=== PATIENT | female | born 1960 | race Caucasian/White ===

== ENCOUNTER 2017-01-14 19:46 | Emergency (ER) | payer OTHER ==
[2017-01-14 19:52] VITALS: PULSE 85; TEMP 97.7; BMI 34.7
[2017-01-14] MEDS ORDERED: ONDANSETRON 4 MG/2 ML VIAL IVPB ONE (21:35)
[2017-01-14] MEDS ORDERED: morphine CARPU-JECT 4 MG/1 ML DISP.SYRIN IVPUSH ONE (21:35)
[2017-01-14] MEDS ORDERED: SODIUM CHLORIDE 1,000 ML IV STA (21:35)
--- NOTE | 2017-01-14 21:44 | PDOC ---
"History of Present Illness - General Chief Complaint: Back Pain Stated Complaint: BACK PAIN/BLOOD PRESSURE PROBLEM Time Seen by Provider: 01/14/17 21:22 History Source: Patient, Family, Managing Consultant Used (Google Translate.) Exam Limitations: Language Barrier - History of Present Illness Initial Comments: 01/14/17 21:38 56yo Female patient w/ PmHx: HTN, HLD, NIDDM, Appendectomy, Chronic Back Pain presents to ED c/o right flank pain x 1 week radiating to groin. Associated Nausea and Dizziness. Patient states she has been taking Ibuprofen for pain with no relief. She states attending therapy for back pain and was given an injection a few days ago which lasted 1 day with pain worsening. Patient also c/ o frequent and increase urination. Occurred: reports: other (1 week.) Severity: reports: severe Pain Location: reports: back Method of Injury: No: unknown, assault, direct blow, fall, motor vehicle crash, other Modifying Factors: improves with: pain medication Loss of Consciousness: no loss of consciousness Associated Symptoms (Fall): dizziness, nausea/vomiting Past History - Travel Traveled outside of the country in the last 30 days: No Close contact w/someone who was outside of country & ill: No - Past Medical History Allergies/Adverse Reactions: Allergies Allergy/AdvReac Type Severity Reaction Status Date / Time No Known Drug Allergies Allergy Verified 01/14/17 19:51 Home Medications: Ambulatory Orders Aspirin Coated [Ecotrin -] 81 mg PO DAILY 08/14/13 Metoprolol Tartrate [Lopressor -] 100 mg PO DAILY 08/14/13 Oxycodone HCl [Roxicodone -] 5 mg PO Q4H PRN #20 tablet 08/10/15 Sennosides [Senna -] 2 tab PO HS PRN #60 tablet 08/10/15 Azithromycin [Zithromax Tri-Rehan (3 DAYS) -] 500 mg PO DAILY #3 tablet 10/30/15 Tramadol HCl 50 mg PO Q6H PRN #20 tablet MDD 4 tabs 01/15/17 Anemia: No Asthma: No Cancer: No Cardiac Disorders: No CVA: No COPD: No CHF: No Dementia: No Diabetes: Yes GI Disorders: No Disorders: Yes (INCONTINENCE) HTN: Yes Hypercholesterolemia: No Liver Disease: No Psychiatric Problems: Yes (Depression) Seizures: No Thyroid Disease: No - Surgical History Appendectomy: Yes - Immunization History Immunization Up to Date: Yes - Psycho/Social/Smoking Cessation Hx Anxiety: No Suicidal Ideation: No Smoking History: Never smoked Have you smoked in the past 12 months: No Hx Alcohol Use: No Drug/Substance Use Hx: No Substance Use Type: None Hx Substance Use Treatment: No Trauma Specific PMHX - Complaint Specific PMHX Arthritis: No Back Injury: No Neck Injury: No Hx Sacro Iliac Joint Dysfunction: No Review of Systems - Review of Systems Able to Perform ROS?: Yes Is the patient limited Nigerien proficient: No Constitutional: No: Chills, Fever Respiratory: No: Shortness of Breath Cardiac (ROS): No: Chest Pain, Lightheadedness, Palpitations, Syncope, Chest Tightness ABD/GI: Yes: Nausea. No: Abdominal Distended, Constipated, Diarrhea, Poor Appetite, Poor Fluid Intake, Vomiting, Abdominal cramping : Yes: Frequency, Flank Pain. No: Dysuria, Hematuria, Pain, Urgency Musculoskeletal: Yes: Back Pain All Other Systems: Reviewed and Negative *Physical Exam - Vital Signs Last Vital Signs Temp Pulse Resp BP Pulse Ox 97.7 F 85 18 150/78 98 01/14/17 19:49 01/14/17 19:49 01/14/17 19:49 01/14/17 19:49 01/14/17 19:49 - Physical Exam General Appearance: Yes: Nourished, Appropriately Dressed, Moderate Distress. No: Apparent Distress, Mild Distress, Severe Distress Respiratory/Chest: positive: Lungs Clear, Normal Breath Sounds. negative: Chest Tender, Respiratory Distress, Accessory Muscle Use, Labored Respiration, Rapid RR, Rhonchi, Stridor, Wheezing, Hyperresonant, Dullness, Plerual Rub Cardiovascular: positive: Regular Rhythm, Regular Rate Gastrointestinal/Abdominal: positive: Normal Bowel Sounds, Soft. negative: Distended, Guarding, Rebound, Tenderness Musculoskeletal: positive: Normal Inspection. negative: CVA Tenderness, Vertebral Tenderness Extremity: positive: Normal Capillary Refill, Normal Inspection, Normal Range of Motion. negative: Pedal Edema, Swelling, Calf Tenderness, Erythema, Inflammation Integumentary: positive: Normal Color, Dry, Warm Neurologic: positive: fsr II-XII NML intact, Fully Oriented, Alert, Normal Mood/ Affect, Normal Response, Motor Strength 5/5 ED Treatment Course - LABORATORY CBC & Chemistry Diagram: 01/14/17 22:10 01/14/17 22:10 Medical Decision Making - Medical Decision Making 01/15/17 04:53 The Drug Utilization Report below displays all of the controlled substance prescriptions, if any, that your patient has filled in the last twelve months. The information displayed on this report is compiled from pharmacy submissions to the Department, and accurately reflects the information as submitted by the pharmacies. This report was requested by: James Garcia | Reference #: [id number] There are no results for the search terms that you entered. *DC/Admit/Observation/Transfer Diagnosis at time of Disposition: Exacerbation of chronic back pain - Discharge Dispostion Disposition: HOME Condition at time of disposition: Improved Admit: No - Prescriptions Prescriptions: Tramadol HCl 50 mg PO Q6H PRN #20 tablet MDD 4 tabs PRN Reason: Severe Pain - Referrals Referrals: Chapin Velazquez MD [Staff Physician] - - Patient Instructions Printed Discharge Instructions: DI for Low Back Pain Additional Instructions: FOLLOW UP WITH DR. VELAZQUEZ (ORTHOPEDIC) OR YOUR ORTHOPEDIST REGARDING BACK PAIN NOT RELIEVED BY NORMAL MEANS. TAKE MEDICATIONS PRESCRIBED. DO NOT DRIVE, DRINK ALCOHOL, OR OPERATE HEAVY MACHINERY WHILE TAKING TRAMADOL. WARM COMPRESS NEEDED. RETURN IF ANY CONCERNS. YOUR DOCTOR NEEDS TO ORDER MRI IF AN MRI IS NEEDED. WE HAVE PROVIDED YOU WITH RESULTS OF YOUR CT-SCAN TONIGHT. Print Language: VENEZUELAN"
[2017-01-14] MEDS ORDERED: morphine CARPU-JECT 4 MG/1 ML DISP.SYRIN ONE (21:54)
[2017-01-14] MEDS ORDERED: ONDANSETRON 4 MG/2 ML VIAL ONE (21:55)
[2017-01-14 22:25] LABS: BASOPHIL 0.5 % (0-2.0); EOSINOPHIL 0.1 % (0-4.5); MCH 29.2 pg (25.7-33.7); MCHC 32.8 g/dl (32.0-36.0); MEAN PLT VOLUME 9.7 fl (7.5-11.1); NEUTROPHILS 79.3 % (42.8-82.8); PLATELET COUNT 254 K/MM3 (134-434); RDW 14.1 % (11.6-15.6); WHITE BLOOD COUNT 14.9 K/mm3 (4.0-10.0)
[2017-01-14 22:47] LABS: ALBUMIN 3.4 g/dl (3.4-5.0); ANION GAP 8 (8-16); BILIRUBIN,TOTAL 0.2 mg/dL (0.2-1.0); CALCIUM 9.5 mg/dL (8.5-10.1); CO2 30 mmol/L (21-32); CREATININE 0.7 mg/dL (0.55-1.02); GLUCOSE,RANDOM 210 mg/dL (74-106); SGOT/AST 15 U/L (15-37); SGPT/ALT 29 U/L (12-78); TOT PROT 6.5 g/dl (6.4-8.2)
[2017-01-14 22:49] LABS: ALK PHOS 91 U/L (45-117); TROPONIN I < 0.02 ng/ml (0.00-0.05)
[2017-01-15 00:42] LABS: URINE APPEARANCE CLEAR; URINE BILIRUBIN NEGATIVE (NEGATIVE); URINE BLOOD NEGATIVE (NEGATIVE); URINE COLOR STRAW; URINE GLUCOSE (UA) 3+ (NEGATIVE); URINE KETONE NEGATIVE (NEGATIVE); URINE LEUK ESTERASE NEGATIVE (NEGATIVE); URINE NITRITE NEGATIVE (NEGATIVE); URINE PROTEIN NEGATIVE (NEGATIVE); URINE UROBILINOGEN NEGATIVE E.U./dl (0.2-1.0)
[2017-01-15 05:29] VITALS: BP 127/85
== END 2017-01-15 06:05 | disposition home or self-care (01) ==
LOC: JER 19:46
PROC: 3E033NZ Introduction of Analgesics, Hypnotics, Sedatives into Peripheral Vein, Percutaneous Approach (ICD-10-PCS; principal; 2017-01-14)
PROC: 3E033GC Introduction of Other Therapeutic Substance into Peripheral Vein, Percutaneous Approach (ICD-10-PCS; 2017-01-14)
DX: M54.5 Low back pain (principal); G89.29 Other chronic pain; I10 Essential (primary) hypertension; E11.9 Type 2 diabetes mellitus without complications; E78.00 Pure hypercholesterolemia, unspecified; F32.9 Major depressive disorder, single episode, unspecified
CPT/HCPCS: 36415; 72131-TC; 74176-TC; 80053; 81003; 82550; 84484; 85025; 87086; 96374; 96375; 99283-25

== ENCOUNTER 2017-05-21 11:12 | Day surgery (SDC) | payer OTHER ==
[2017-05-20 17:29] VITALS: BMI 32.9
[2017-05-21 11:31] VITALS: TEMP 97.9
[2017-05-21] MEDS ORDERED: LIDOCAINE HCL/PF 2% SDV 5ML VIAL ONE (13:23)
[2017-05-21] MEDS ORDERED: LIDOCAINE HCL 1%, 10 MG/ML (20ML VIAL) INF ONE (13:26)
[2017-05-21] MEDS ORDERED: BUPIVACAINE HCL/PF 0.25% (2.5MG/ML) 10 ML VIAL IJ ONE (13:27)
[2017-05-21] MEDS ORDERED: BETAMET ACET/BETAMET NA PH 30 MG/5 ML VIAL IM ONE (13:28)
[2017-05-21] MEDS ORDERED: IOHEXOL 180 MG/1 ML ML IJ ONE (13:28)
[2017-05-21] MEDS ORDERED: LIDOCAINE HCL 1%, 10 MG/ML (20ML VIAL) ONE (13:57)
[2017-05-21] MEDS ORDERED: BUPIVACAINE HCL/PF 0.25% (2.5MG/ML) 10 ML VIAL ONE (13:57)
[2017-05-21] MEDS ORDERED: methylPREDNISolone ACET (DEPO) 40 MG/1 ML VIAL ONE (13:58)
[2017-05-21] MEDS ORDERED: BETAMET ACET/BETAMET NA PH 30 MG/5 ML VIAL ONE (13:58)
--- NOTE | 2017-05-21 14:37 | PROC ---
Procedure Note Procedure: Date of service: 05/21/2017 Preoperative Diagnosis: Low back pain and lumbar radiculopathy on right Postoperative Diagnosis: Same Procedure Performed: Lumbar Epidural Steroid Injection (LESI) on Right L4-5 with dye under Fluoroscopy Anesthesia: Local / MAC Anesthesiologist: Dr. Roche Procedure: I discussed with the patient in detail about the risks, benefits, and alternatives to treatment not only limited to infection, headache, numbness , weakness, and injury to nerves, blood vessels and muscles. The patient understood, agreed and signed the written consent. The patient was placed in the prone position with the head, abdomen and legs supported with the pillows. The lumbosacral area was prepped and draped with Betadine times three in a sterile fashion. Lumbar vertebrae were identified under the C-arm. At L4-5 level on the right side, 3 ml of 1 % Lidocaine was infiltrated into the skin and subcutaneous tissue. A 3 inch, #20 gauge Tuohy needle was advanced to the epidural space with loss of resistance technique under fluoroscopic guidance. Aspiration was negative for cerebrospinal fluid and blood. 2ml of Omnipaque ( radio-opaque dye) was injected to confirm the tip of the needle into epidural space and spread of dye. There was no CSF or vascular spread. The spread of dye was noted cranially and caudally on epidurogram. Aspiration was done again which was negative. A solution of 2.0 ml of Celestone 2 ml of 0.25% Marcaine and a total of 4 ml was injected slowly. While Tuohy needle was withdrawn 2.0 ml of 1 % Lidocaine was infiltrated. Bleeding was checked. Betadine was wiped off. A sterile bandage was placed. The patient tolerated the procedure well. There were no immediate complications. The patient was transferred to the recovery room. The patient was observed for some time and discharged as per ASU criteria. The patient was told to apply ice at the injection site. Follow up appointment was given and also call my office at [phone]. If there is any problem, call my office or report to Emergency Room. Tyrone Davis M.D.
[2017-05-21 15:52] VITALS: BP 150/82; PULSE 82
== END 2017-05-21 15:52 | disposition home or self-care (01) ==
LOC: JASU-SURG 11:12
PROVIDERS: ATTEND Physical Medicine & Rehabilitation
PROC: 3E0R33Z Introduction of Anti-inflammatory into Spinal Canal, Percutaneous Approach (ICD-10-PCS; 2017-05-21)
PROC: B01BYZZ Fluoroscopy of Spinal Cord using Other Contrast (ICD-10-PCS; 2017-05-21)
PROC: 3E0R3BZ Introduction of Anesthetic Agent into Spinal Canal, Percutaneous Approach (ICD-10-PCS; principal; 2017-05-21 13:00)
DX: M54.16 Radiculopathy, lumbar region (principal); M54.5 Low back pain
CPT/HCPCS: 76000-TC

== ENCOUNTER 2017-12-01 12:49 | Emergency (ER) | payer OTHER ==
[2017-12-01 13:03] VITALS: BP 127/78; PULSE 95; TEMP 98.3; BMI 34.7
[2017-12-01] MEDS ORDERED: LORATADINE 10 MG TABLET PO ONE (13:29)
[2017-12-01] MEDS ORDERED: LORATADINE 10 MG TABLET ONE (13:31)
--- NOTE | 2017-12-01 13:34 | PDOC ---
History of Present Illness - General Chief Complaint: Allergic Reaction Stated Complaint: ALLERGIC REACTION Time Seen by Provider: 12/01/17 13:09 History Source: Patient - History of Present Illness Timing/Duration: reports: other Location: reports: extremities, torso Past History - Past Medical History Allergies/Adverse Reactions: Allergies Allergy/AdvReac Type Severity Reaction Status Date / Time No Known Drug Allergies Allergy Verified 12/01/17 13:03 Home Medications: Ambulatory Orders Aspirin Coated [Ecotrin -] 81 mg PO DAILY 08/14/13 Chlorthalidone 25 mg PO ASDIR 12/01/17 Diphenhydramine HCl [Benadryl -] 25 mg PO Q6H #28 capsule 12/01/17 Escitalopram Oxalate [Lexapro -] 10 mg PO DAILY 12/01/17 Gabapentin 300 mg PO ASDIR 12/01/17 Lisinopril [Zestril] 2.5 mg PO ASDIR 12/01/17 Loratadine [Claritin] 10 mg PO DAILY #14 tablet 12/01/17 Loratadine [Claritin] 10 mg PO DAILY #14 tablet 12/01/17 Metformin HCl 850 mg PO ASDIR 12/01/17 Anemia: No Asthma: No Cancer: No Cardiac Disorders: No CVA: No COPD: No CHF: No Dementia: No Diabetes: Yes GI Disorders: No Disorders: Yes (INCONTINENCE) HTN: Yes Hypercholesterolemia: No Liver Disease: No Psychiatric Problems: Yes (Depression) Seizures: No Thyroid Disease: No - Surgical History Appendectomy: Yes - Immunization History Immunization Up to Date: Yes - Suicide/Smoking/Psychosocial Hx Smoking History: Never smoked Have you smoked in the past 12 months: No Hx Alcohol Use: No Drug/Substance Use Hx: No Substance Use Type: None Hx Substance Use Treatment: No Review of Systems - Review of Systems Constitutional: No: Chills, Fever Respiratory: No: Shortness of Breath, Wheezing Integumentary: Yes: Pruritus, Rash *Physical Exam - Vital Signs Last Vital Signs Temp Pulse Resp BP Pulse Ox 98.3 F 95 H 18 127/78 99 12/01/17 13:00 12/01/17 13:00 12/01/17 13:00 12/01/17 13:00 12/01/17 13:00 - Physical Exam General Appearance: Yes: Appropriately Dressed. No: Apparent Distress HEENT: positive: Normal Voice. negative: Muffled/Hoarse voice Neck: positive: Supple. negative: Stridor Respiratory/Chest: negative: Respiratory Distress Integumentary: positive: Dry, Warm, Hives Neurologic: positive: Fully Oriented, Alert, Normal Mood/Affect Medical Decision Making - Medical Decision Making 12/01/17 13:32 57-year-old female, history of diabetes and hypertension, here with pruritic rash 3 days. Patient has no known drug or food allergies and denies any inciting factors at this time. No sick contacts or recent travel. No respiratory symptoms. Has not taking anything for rash. Patient well- appearing and stable with rash consistent with hives to upper and lower extremities and trunk. Exam otherwise unremarkable. Dose of Claritin given in ED. DC with same and PMD follow-up as needed *DC/Admit/Observation/Transfer Diagnosis at time of Disposition: Hives - Discharge Dispostion Disposition: HOME Condition at time of disposition: Good - Prescriptions Prescriptions: Diphenhydramine HCl [Benadryl -] 25 mg PO Q6H #28 capsule Loratadine [Claritin] 10 mg PO DAILY #14 tablet Loratadine [Claritin] 10 mg PO DAILY #14 tablet - Referrals - Patient Instructions Printed Discharge Instructions: Hives Additional Instructions: It appears that you have an allergic reaction at this time. Take Claritin once daily as directed and you can take Benadryl at night to assist with sleep as needed. If symptoms worsen, return to ER immediately. Otherwise follow-up with your PMD - Post Discharge Activity
== END 2017-12-01 13:35 | disposition home or self-care (01) ==
LOC: JERFT 12:49
DX: T78.40XA Allergy, unspecified, initial encounter (principal); L50.0 Allergic urticaria; I10 Essential (primary) hypertension; E11.9 Type 2 diabetes mellitus without complications; Z79.84 Long term (current) use of oral hypoglycemic drugs; F32.9 Major depressive disorder, single episode, unspecified
CPT/HCPCS: 99281-25

== ENCOUNTER 2018-02-09 22:10 | Emergency (ER) | payer OTHER ==
[2018-02-09 22:23] VITALS: BMI 32.9
[2018-02-09] MEDS ORDERED: morphine CARPU-JECT 4 MG/1 ML DISP.SYRIN IVPUSH STA (23:55)
[2018-02-09] MEDS ORDERED: SODIUM CHLORIDE 1,000 ML IV STA (23:55)
[2018-02-09] MEDS ORDERED: ONDANSETRON 4 MG/2 ML VIAL IVPUSH STA (23:55)
--- NOTE | 2018-02-09 23:55 | PDOC ---
History of Present Illness <TyroneJackiejza Carcamo - Last Filed: 02/09/18 23:55> - General History Source: Patient Exam Limitations: No Limitations - History of Present Illness Initial Comments: 02/10/18 00:33 The patient is a 57 year old female, with a significant PMH of HDL non insulin independent diabetes, HTN and depression who presents to the emergency department with nausea and vomiting that began 1 day ago. The patient states nausea and vomiting is accompanied with RUQ/RLQ pain, chills, dysuria and 3 loose stools. The patient mentions she went to her clinic yesterday and was prescribed pyridium. The patient denies chest pain, shortness of breath, headache and dizziness.Denies, constipation, frequency, urgency and hematuria. Allergies: NKDA Past surgical history: Appendectomy Social history: None reported PCP: None reported <Aron Olmstead - Last Filed: 02/10/18 00:33> <Ngozi Sanches - Last Filed: 02/10/18 06:09> - General Chief Complaint: Pain Stated Complaint: VOMIT/STOMACH PAIN Time Seen by Provider: 02/09/18 23:37 Past History - Past Medical History Anemia: No Asthma: No Cancer: No Cardiac Disorders: No CVA: No COPD: No CHF: No DVT: No Dementia: No Diabetes: Yes (NIDDM) GI Disorders: No Disorders: Yes (INCONTINENCE) HTN: Yes Hypercholesterolemia: Yes Liver Disease: No Psychiatric Problems: Yes (Depression) Seizures: No Thyroid Disease: No - Surgical History Appendectomy: Yes - Immunization History Immunization Up to Date: Yes - Suicide/Smoking/Psychosocial Hx Smoking History: Never smoked Have you smoked in the past 12 months: No Information on smoking cessation initiated: No Hx Alcohol Use: No Drug/Substance Use Hx: No Substance Use Type: None Hx Substance Use Treatment: No <Jackie Hansen - Last Filed: 02/09/18 23:55> <Aron Olmstead - Last Filed: 02/10/18 00:33> <Ngozi Sanches - Last Filed: 02/10/18 06:09> - Past Medical History Allergies/Adverse Reactions: Allergies Allergy/AdvReac Type Severity Reaction Status Date / Time No Known Drug Allergies Allergy Verified 12/01/17 13:03 Home Medications: Ambulatory Orders Aspirin Coated [Ecotrin -] 81 mg PO DAILY 08/14/13 Chlorthalidone 25 mg PO ASDIR 12/01/17 Diphenhydramine HCl [Benadryl -] 25 mg PO Q6H #28 capsule 12/01/17 Escitalopram Oxalate [Lexapro -] 10 mg PO DAILY 12/01/17 Gabapentin 300 mg PO ASDIR 12/01/17 Lisinopril [Zestril] 2.5 mg PO ASDIR 12/01/17 Loratadine [Claritin] 10 mg PO DAILY #14 tablet 12/01/17 Loratadine [Claritin] 10 mg PO DAILY #14 tablet 12/01/17 Metformin HCl 850 mg PO ASDIR 12/01/17 Cephalexin [Keflex] 500 mg PO TID #21 capsule 02/10/18 Review of Systems - Review of Systems Able to Perform ROS?: Yes Comments:: 02/10/18 00:33 CONSTITUTIONAL: Present: Fever, chills Absent: diaphoresis, generalized weakness, malaise, loss of appetite HEENT: Absent: rhinorrhea, nasal congestion, throat pain, throat swelling, difficulty swallowing, mouth swelling, ear pain, eye pain, visual Changes CARDIOVASCULAR: Absent: chest pain, syncope, palpitations, irregular heart rate, lightheadedness , peripheral edema RESPIRATORY: Absent: cough, shortness of breath, dyspnea with exertion, orthopnea, wheezing, stridor, hemoptysis GASTROINTESTINAL: Present: Nausea, vomiting Absent: abdominal pain, abdominal distension,diarrhea, constipation, melena, hematochezia GENITOURINARY: Present:dysuria Absent: frequency, urgency, hesitancy, hematuria, flank pain, genital pain SKIN: Absent: rash, itching, pallor ENDOCRINE: Absent: unexplained weight gain, unexplained weight loss, heat intolerance, cold intolerance NEUROLOGIC: Absent: headache, focal weakness or paresthesias, dizziness, unsteady gait, seizure, mental status changes, bladder or bowel incontinence PSYCHIATRIC: Absent: anxiety, depression, suicidal or homicidal ideation, hallucinations. <Aron Olmstead - Last Filed: 02/10/18 00:33> *Physical Exam - Vital Signs Last Vital Signs Temp Pulse Resp BP Pulse Ox 98.1 F 93 H 20 149/86 98 02/09/18 22:17 02/09/18 22:17 02/09/18 22:17 02/09/18 22:17 02/09/18 22:17 <Jackie Hansen - Last Filed: 02/09/18 23:55> - Vital Signs Last Vital Signs Temp Pulse Resp BP Pulse Ox 98.1 F 93 H 20 149/86 98 02/09/18 22:17 02/09/18 22:17 02/09/18 22:17 02/09/18 22:17 02/09/18 22:17 - Physical Exam Comments: 02/10/18 00:34 GENERAL: Well developed, well nourished. Awake and alert. No acute distress. HEENT: Normocephalic, atraumatic. PERRLA, EOMI. No conjunctival pallor. Sclera are non- icteric. Moist mucous membranes. Oropharynx is clear. NECK: Supple. Full ROM. No JVD. Carotid pulses 2+ and symmetric, without bruits. No thyromegaly. No lymphadenopathy. CARDIOVASCULAR: Regular rate and rhythm. No murmurs, rubs, or gallops. Distal pulses are 2+ and symmetric. PULMONARY: No evidence of respiratory distress. Lungs clear to auscultation bilaterally. No wheezing, rales or rhonchi. ABDOMINAL: +RUQ/ RLQ tenderness to palpation. Soft. No rebound or guarding. No organomegaly. Normoactive bowel sounds. MUSCULOSKELETAL Normal range of motion at all joints. No bony deformities or tenderness. No CVA tenderness. EXTREMITIES: No cyanosis. No clubbing. No edema. No calf tenderness. SKIN: Warm and dry. Normal capillary refill. No rashes. No jaundice. NEUROLOGICAL: Alert, awake, appropriate. Cranial nerves 2-12 intact. No deficits to light touch and temperature in face, upper extremities and lower extremities. Normoreflexic in the upper and lower extremities. Normal speech. PSYCHIATRIC: Cooperative. Good eye contact. Appropriate mood and affect. <Aron Olmstead - Last Filed: 02/10/18 00:33> - Vital Signs Last Vital Signs Temp Pulse Resp BP Pulse Ox 98.1 F 93 H 20 149/86 98 02/09/18 22:17 02/09/18 22:17 02/09/18 22:17 02/09/18 22:17 02/09/18 22:17 <Ngozi Sanches - Last Filed: 02/10/18 06:09> ED Treatment Course - LABORATORY CBC & Chemistry Diagram: 02/10/18 01:28 02/10/18 01:28 - ADDITIONAL ORDERS Additional order review: Laboratory Results 02/10/18 02/10/18 01:28 01:28 Sodium 144 Potassium 3.5 Chloride 105 Carbon Dioxide 30 Anion Gap 9 BUN 17 Creatinine 0.7 Creat Clearance w eGFR > 60 Random Glucose 140 H Calcium 9.7 Total Bilirubin 0.4 AST 19 ALT 32 Alkaline Phosphatase 122 H Total Protein 7.0 Albumin 3.8 Lipase 85 Urine Color Kae Urine Appearance Clear Urine pH 6.0 D Ur Specific [place] 1.024 Urine Protein Negative Urine Glucose (UA) Negative Urine Ketones Negative Urine Blood Negative Urine Nitrite Positive Urine Bilirubin Negative Urine Urobilinogen 4.0 e.u/dl H Ur Leukocyte Esterase Negative Urine WBC (Auto) 13 Urine RBC (Auto) 1 Ur Epithelial Cells Few Urine Mucus Few 02/10/18 01:28 RBC 4.75 MCV 87.6 MCHC 34.2 RDW 13.7 MPV 9.6 Neutrophils % 84.5 H Lymphocytes % 10.9 D Monocytes % 4.0 Eosinophils % 0.4 D Basophils % 0.2 - Medications Given in the ED: ED Medications Discontinued Medications Generic Name Dose Route Start Last Admin Trade Name Ally PRN Reason Stop Dose Admin Sodium Chloride 1,000 mls @ 1,000 mls/hr 02/09/18 23:55 02/10/18 01:23 Normal Saline - IV 02/10/18 00:54 1,000 mls/hr ASDIR STA Administration Morphine Sulfate 2 mg 02/09/18 23:55 02/10/18 01:32 Morphine Injection - IVPUSH 02/09/18 23:56 2 mg ONCE STA Administration Ondansetron HCl 4 mg 02/09/18 23:55 02/10/18 01:33 Zofran Injection IVPUSH 02/09/18 23:56 4 mg ONCE STA Administration <Ngozi Sanches - Last Filed: 02/10/18 06:09> Medical Decision Making - Medical Decision Making 02/10/18 05:54 Patient Name: DREW BLANTON THIS IS A PRELIMINARY REPORT FROM [facility] [employer]NA[facility] DATE OF SERVICE: 2018-02-10 02:24:25 IMAGES: [id number] EXAM: ABDOMEN \T\ PELVIS CT WITH CONTR HISTORY: Right lower quadrant pain COMPARISON: None. FINDINGS: Lung bases are clear. The visualized cardiac chambers are normal size and configuration. Normal liver, gallbladder, pancreas, spleen, adrenal glands and kidneys. The stomach and small bowel bowel are normal. There is scattered liquid stool without colonic wall thickening which may indicate a diarrheal illness. There is no aortic aneurysm. There is no significant retroperitoneal lymphadenopathy. Status post appendectomy. The uterus and adnexal structures are normal. Urinary bladder is unremarkable. There is no pelvic free fluid. No discrete pelvic lymphadenopathy is identified. IMPRESSION: Possible diarrheal illness without colonic wall thickening. Individualized dose optimization techniques were used for this CT. 02/10/18 06:08 Pt will be treated with rocephin in the ER for UTI and she will go home with keflex. <Ngozi Sanches - Last Filed: 02/10/18 06:09> *DC/Admit/Observation/Transfer <Jackie Hansen - Last Filed: 02/09/18 23:55> - Attestations Scribe Attestion: 02/10/18 00:35 Documentation prepared by Aron Olmstead, acting as senior medical writer for Jackie Hansen MD. <Aron Olmstead - Last Filed: 02/10/18 00:33> - Discharge Dispostion Decision to Admit order: No <Ngozi Sanches - Last Filed: 02/10/18 06:09> Diagnosis at time of Disposition: Diarrhea, UTI (urinary tract infection) - Discharge Dispostion Disposition: HOME Condition at time of disposition: Stable - Prescriptions Prescriptions: Cephalexin [Keflex] 500 mg PO TID #21 capsule - Referrals Referrals: Carmella Martinez [Primary Care Provider] - - Patient Instructions Printed Discharge Instructions: Urinary Tract Infection, Diarrhea, Probiotics May Decrease Intensity and Duration of Diarrhea Due to Infection - Post Discharge Activity
[2018-02-10 01:40] LABS: BASO % 0.2 % (0-2.0); EOS % 0.4 % (0-4.5); HEMATOCRIT 41.6 % (32.4-45.2); HEMOGLOBIN 14.2 GM/dL (10.7-15.3); LYMPH % 10.9 % (8-40); MCH 29.9 pg (25.7-33.7); MCHC 34.2 g/dl (32.0-36.0); MEAN CELL VOLUME 87.6 fl (80-96); MEAN PLT VOLUME 9.6 fl (7.5-11.1); NEUT % 84.5 % (42.8-82.8); PLATELET COUNT 237 K/MM3 (134-434); RBC 4.75 M/mm3 (3.60-5.2); RDW 13.7 % (11.6-15.6); WHITE BLOOD COUNT 10.8 K/mm3 (4.0-10.0)
[2018-02-10 01:41] LABS: URINE APPEARANCE CLEAR; URINE BILIRUBIN NEGATIVE (<2.0 mg/dL); URINE COLOR AMBER; URINE GLUCOSE (UA) NEGATIVE (NEGATIVE); URINE KETONE NEGATIVE (NEGATIVE); URINE LEUK ESTERASE NEGATIVE (NEGATIVE); URINE NITRITE POSITIVE (NEGATIVE); URINE PROTEIN NEGATIVE (NEGATIVE); URINE UROBILINOGEN 4.0 E.U/dl mg/dL (0.2-1.0)
[2018-02-10] MEDS ORDERED: MORPHINE SULFATE 2 MG/ML VIAL ONE (01:46)
[2018-02-10] MEDS ORDERED: ONDANSETRON 4 MG/2 ML VIAL ONE (01:47)
[2018-02-10 01:50] LABS: EPI CELLS FEW /HPF (FEW); URINE MUCUS FEW
[2018-02-10 02:03] LABS: ALBUMIN 3.8 g/dl (3.4-5.0); ANION GAP 9 (8-16); BILIRUBIN,TOTAL 0.4 mg/dL (0.2-1.0); BLOOD UREA NITROGEN 17 mg/dL (7-18); CALCIUM 9.7 mg/dL (8.5-10.1); CHLORIDE 105 mmol/L (98-107); CO2 30 mmol/L (21-32); CREATININE 0.7 mg/dL (0.55-1.02); GLUCOSE,RANDOM 140 mg/dL (74-106); LIPASE 85 U/L (73-393); POTASSIUM 3.5 mmol/L (3.5-5.1); SGOT/AST 19 U/L (15-37); SGPT/ALT 32 U/L (12-78); SODIUM 144 mmol/L (136-145)
[2018-02-10 02:04] LABS: ALK PHOS 122 U/L (45-117)
[2018-02-10] MEDS ORDERED: CEFTRIAXONE 1,000 MG in DEXTROSE 5%-WATER - 50 ML IVPB ONE (05:58)
[2018-02-10] MEDS ORDERED: CEFTRIAXONE 1 GM/50 ML BAG ONE (06:07)
[2018-02-10 06:44] VITALS: BP 129/72; PULSE 78; TEMP 97.9
== END 2018-02-10 06:44 | disposition home or self-care (01) ==
LOC: JER 22:10
PROC: 3E0337Z Introduction of Electrolytic and Water Balance Substance into Peripheral Vein, Percutaneous Approach (ICD-10-PCS; principal; 2018-02-09)
PROC: 3E02329 Introduction of Other Anti-infective into Muscle, Percutaneous Approach (ICD-10-PCS; 2018-02-09)
PROC: 3E03329 Introduction of Other Anti-infective into Peripheral Vein, Percutaneous Approach (ICD-10-PCS; 2018-02-09)
PROC: 3E033GC Introduction of Other Therapeutic Substance into Peripheral Vein, Percutaneous Approach (ICD-10-PCS; 2018-02-09)
DX: N39.0 Urinary tract infection, site not specified (principal); R19.7 Diarrhea, unspecified
CPT/HCPCS: 36415; 74177-TC; 80053; 81003; 81015; 83690; 85025; 96361; 96365; 96375; 99282-25; J7030

== ENCOUNTER 2018-06-02 09:17 | Emergency (ER) | payer OTHER ==
[2018-06-02 09:26] VITALS: BP 167/89; PULSE 94; TEMP 97.3; BMI 34.0
[2018-06-02] MEDS ORDERED: KETOROLAC TROMETHAMINE 60 MG/2 ML VIAL IM ONE (11:15)
[2018-06-02] MEDS ORDERED: CYCLOBENZAPRINE HCL 10 MG TABLET (FP) PO ONE (11:16)
[2018-06-02] MEDS ORDERED: CYCLOBENZAPRINE HCL 10 MG TABLET (FP) ONE (11:17)
[2018-06-02] MEDS ORDERED: KETOROLAC TROMETHAMINE 60 MG/2 ML VIAL ONE (11:17)
--- NOTE | 2018-06-02 11:53 | PDOC ---
History of Present Illness - General Chief Complaint: Back Pain Stated Complaint: BACK PAIN Time Seen by Provider: 06/02/18 11:07 History Source: Patient Exam Limitations: Clinical Condition - History of Present Illness Initial Comments: 06/02/18 11:51 Patient with history of herniated disc a lumbar spine status post spinal fusion 2 months ago present with complaint of lower back pain radiating to the side of lower left side. Patient has been taking the prescribed Percocet by report has not been helping with the pain. Patient denies any numbness or tingling sensation. Patient report patient keeps her up at night and unable to sleep due to pain which has been going on for 3 days now. Patient reports she fell 2 weeks ago and not sure if that was causing the pain to worsen. Patient denies any other symptoms Timing/Duration: other (3 days) Past History - Past Medical History Allergies/Adverse Reactions: Allergies Allergy/AdvReac Type Severity Reaction Status Date / Time No Known Drug Allergies Allergy Verified 06/02/18 09:26 Home Medications: Ambulatory Orders Aspirin Coated [Ecotrin -] 81 mg PO DAILY 08/14/13 Chlorthalidone 25 mg PO ASDIR 12/01/17 Escitalopram Oxalate [Lexapro -] 10 mg PO DAILY 12/01/17 Gabapentin 300 mg PO ASDIR 12/01/17 Lisinopril [Zestril] 2.5 mg PO ASDIR 12/01/17 metFORMIN HCL [Metformin HCl] 850 mg PO ASDIR 12/01/17 Gabapentin [Neurontin] 300 mg PO Q8H PRN #20 capsule 06/02/18 Methocarbamol [Robaxin -] 500 mg PO TID #21 tablet 06/02/18 Anemia: No Asthma: No Cancer: No Cardiac Disorders: No CVA: No COPD: No CHF: No DVT: No Dementia: No Diabetes: Yes (NIDDM) GI Disorders: No Disorders: Yes (INCONTINENCE) HTN: Yes Hypercholesterolemia: Yes Liver Disease: No Psychiatric Problems: Yes (Depression) Seizures: No Thyroid Disease: No - Surgical History Appendectomy: Yes - Immunization History Immunization Up to Date: Yes - Suicide/Smoking/Psychosocial Hx Smoking History: Never smoked Have you smoked in the past 12 months: No Information on smoking cessation initiated: No Hx Alcohol Use: No Drug/Substance Use Hx: No Substance Use Type: None Hx Substance Use Treatment: No Review of Systems - Review of Systems Able to Perform ROS?: Yes Is the patient limited Telugu proficient: No Constitutional: No: Weakness HEENTM: No: Double Vision Respiratory: No: Symptoms reported Cardiac (ROS): No: Symptoms Reported ABD/GI: No: Symptoms Reported : No: Dysuria, Frequency, Flank Pain, Incontinence, Urgency Musculoskeletal: Yes: See HPI, Back Pain (lwoer back), Muscle Pain (lower back radiating to left side). No: Joint Swelling, Muscle Weakness, Neck Pain Neurological: No: Symptoms reported, Numbness, Paresthesia, Tingling All Other Systems: Reviewed and Negative *Physical Exam - Vital Signs Last Vital Signs Temp Pulse Resp BP Pulse Ox 97.3 F L 94 H 16 167/89 100 06/02/18 09:23 06/02/18 09:23 06/02/18 09:23 06/02/18 09:23 06/02/18 09:23 - Physical Exam Comments: 06/02/18 11:54 GENERAL: Well developed, well nourished. Awake and alert. No acute distress. CARDIOVASCULAR: Regular rate and rhythm. No murmurs, rubs, or gallops. PULMONARY: No evidence of respiratory distress. Lungs clear to auscultation bilaterally. No wheezing, rales or rhonchi. ABDOMINAL: Soft. Non-tender. Non-distended. No rebound or guarding. No organomegaly. Normoactive bowel sounds MUSCULOSKELETAL : moderate tenderness over posterior paravertebral muscle L4-S2 on left side. No bony deformities EXTREMITIES: No cyanosis. No clubbing. No edema. No calf tenderness. SKIN: well healed linear surgical incisional scar on lumbar spine . no erythema to incision site. no evidence of infection to incision site NEUROLOGICAL: Alert, awake, appropriate. No motor deficits in the lower extremities. negative strainght left raise. Gait is normal with cane. PSYCHIATRIC: Cooperative. Good eye contact. Appropriate mood and affect. General Appearance: Yes: Nourished, Appropriately Dressed, Mild Distress ED Treatment Course - RADIOLOGY Radiology Studies Ordered: Category Date Time Status SPINE-LUMBAR SACRAL [RAD] Stat Radiology 06/02/18 11:16 Taken - Medications Given in the ED: ED Medications Discontinued Medications Generic Name Dose Route Start Last Admin Trade Name Freq PRN Reason Stop Dose Admin Cyclobenzaprine HCl 10 mg 06/02/18 11:16 06/02/18 11:24 Flexeril - PO 06/02/18 11:17 10 mg ONCE ONE Administration Ketorolac Tromethamine 60 mg 06/02/18 11:15 06/02/18 11:24 Toradol Injection - IM 06/02/18 11:16 60 mg ONCE ONE Administration Medical Decision Making - Medical Decision Making 06/02/18 11:56 Patient with history of herniated disc status post spinal fusion 2 months ago present with complaint of low back pain. X-ray of the lumbosacral shows 2 screws over fourth and fifth lumbar spine otherwise no acute pathology. Patient discharged home muscle relaxer and Neurontin with orthopedic surgeon follow-up. Cyclobenzaprine 10 mg by mouth given and Toradol 60 mg IM for pain. *DC/Admit/Observation/Transfer Diagnosis at time of Disposition: Exacerbation of chronic back pain Lumbago Qualifiers: Chronicity: chronic Back pain laterality: bilateral Sciatica presence: without sciatica Qualified Code(s): M54.5 - Low back pain; G89.29 - Other chronic pain - Discharge Dispostion Disposition: HOME Condition at time of disposition: Stable Decision to Admit order: No - Prescriptions Prescriptions: Gabapentin [Neurontin] 300 mg PO Q8H PRN #20 capsule PRN Reason: Back Pain Methocarbamol [Robaxin -] 500 mg PO TID #21 tablet - Referrals Referrals: Serge Nettles MD, FAANS [Staff Physician] - - Patient Instructions Printed Discharge Instructions: Managing Chronic Low Back Pain, Activity May Be Better then Rest for Low Back Pain Recovery Additional Instructions: take medications as prescribed. follow-up with neurosurgeon who did back surgery for reassessment - Post Discharge Activity
== END 2018-06-02 12:02 | disposition home or self-care (01) ==
LOC: JERFT 09:17
PROC: 3E0233Z Introduction of Anti-inflammatory into Muscle, Percutaneous Approach (ICD-10-PCS; principal; 2018-06-02)
DX: M54.5 Low back pain (principal); G89.29 Other chronic pain; M43.26 Fusion of spine, lumbar region; I10 Essential (primary) hypertension; E78.00 Pure hypercholesterolemia, unspecified; E11.9 Type 2 diabetes mellitus without complications; Z79.84 Long term (current) use of oral hypoglycemic drugs; F32.9 Major depressive disorder, single episode, unspecified
CPT/HCPCS: 72100-TC-FY; 96372; 99281-25

== ENCOUNTER 2018-07-09 00:46 | Emergency (ER) | payer OTHER ==
[2018-07-09 02:11] VITALS: BP 145/76; PULSE 74; TEMP 98.2; BMI 29.0
[2018-07-09] MEDS ORDERED: SODIUM CHLORIDE 1,000 ML IV STA (02:15)
[2018-07-09] MEDS ORDERED: SODIUM CHLORIDE FOR INHALATION 3 ML VIAL.NEB IH ONE (02:15)
[2018-07-09] MEDS ORDERED: OXYMETAZOLINE 0.05% NASAL SOLUTION 15 ML BOTTLE NS ONE (02:15)
[2018-07-09 03:07] LABS: BASO % 0.9 % (0-2.0); EOS % 3.8 % (0-4.5); HEMATOCRIT 36.6 % (32.4-45.2); HEMOGLOBIN 12.8 GM/dL (10.7-15.3); LYMPH % 34.7 % (8-40); MCH 29.5 pg (25.7-33.7); MEAN CELL VOLUME 84.3 fl (80-96); MEAN PLT VOLUME 9.1 fl (7.5-11.1); MONO % 6.3 % (3.8-10.2); NEUT % 54.3 % (42.8-82.8); PLATELET COUNT 233 K/MM3 (134-434); RBC 4.34 M/mm3 (3.60-5.2); RDW 14.7 % (11.6-15.6); WHITE BLOOD COUNT 7.1 K/mm3 (4.0-10.0)
[2018-07-09 03:36] LABS: ALBUMIN 3.4 g/dl (3.4-5.0); ALK PHOS 154 U/L (45-117); ANION GAP 7 MMOL/L (8-16); BILIRUBIN,TOTAL 0.3 mg/dL (0.2-1); BLOOD UREA NITROGEN 12 mg/dL (7-18); CALCIUM 8.3 mg/dL (8.5-10.1); CHLORIDE 107 mmol/L (98-107); CO2 28 mmol/L (21-32); CREATININE 0.6 mg/dL (0.55-1.3); GLUCOSE,RANDOM 107 mg/dL (74-106); POTASSIUM 3.9 mmol/L (3.5-5.1); SGOT/AST 21 U/L (15-37); SGPT/ALT 40 U/L (13-61); SODIUM 142 mmol/L (136-145); TOT PROT 6.6 g/dl (6.4-8.2)
--- NOTE | 2018-07-09 03:51 | PDOC ---
History of Present Illness - History of Present Illness Initial Comments: This patient is a 58 year old female with PMHx of HLD, HTN, non insulin independent diabetes, and depression, herniated disc a lumbar spine status post spinal fusion 2 months ago, who presents with 1 week of chest congestion, cough , and nosebleed. Patient states that she has been coughing a lot recently and has been having intermittent left nostril epistaxis. Denies any fevers or chills. Allergies: NKDA Past surgical history: Appendectomy Social history: None reported PCP: None reported 07/09/18 04:36 <Tanika Zheng - Last Filed: 07/09/18 04:36> - General History Source: Patient Exam Limitations: No Limitations <Keny Rice - Last Filed: 07/09/18 04:52> - General Chief Complaint: Nasal Bleeding Stated Complaint: EPISTAXIS Time Seen by Provider: 07/09/18 02:08 Past History <Tanika Zheng - Last Filed: 07/09/18 04:36> - Past Medical History Anemia: No Asthma: No Cancer: No Cardiac Disorders: No CVA: No COPD: No CHF: No DVT: No Dementia: No Diabetes: Yes (NIDDM) GI Disorders: No Disorders: Yes (INCONTINENCE) HTN: Yes Hypercholesterolemia: Yes Liver Disease: No Psychiatric Problems: Yes (Depression) Seizures: No Thyroid Disease: No - Surgical History Appendectomy: Yes - Immunization History Immunization Up to Date: Yes - Suicide/Smoking/Psychosocial Hx Smoking History: Never smoked Have you smoked in the past 12 months: No Information on smoking cessation initiated: No Hx Alcohol Use: No Drug/Substance Use Hx: No Substance Use Type: None Hx Substance Use Treatment: No <Keny Rice - Last Filed: 07/09/18 04:52> - Past Medical History Allergies/Adverse Reactions: Allergies Allergy/AdvReac Type Severity Reaction Status Date / Time No Known Drug Allergies Allergy Verified 07/09/18 02:12 Home Medications: Ambulatory Orders Aspirin Coated [Ecotrin -] 81 mg PO DAILY 08/14/13 Chlorthalidone 25 mg PO ASDIR 12/01/17 Escitalopram Oxalate [Lexapro -] 10 mg PO DAILY 12/01/17 Gabapentin 300 mg PO ASDIR 12/01/17 Lisinopril [Zestril] 2.5 mg PO ASDIR 12/01/17 metFORMIN HCL [Metformin HCl] 850 mg PO ASDIR 12/01/17 Gabapentin [Neurontin] 300 mg PO Q8H PRN #20 capsule 06/02/18 Methocarbamol [Robaxin -] 500 mg PO TID #21 tablet 06/02/18 Azithromycin 250 mg PO DAILY #4 tablet 07/09/18 Ondansetron HCl [Zofran] 4 mg PO Q8H PRN #12 tablet 07/09/18 Review of Systems - Review of Systems Comments:: GENERAL/CONSTITUTIONAL: No fever or chills. No weakness. HEAD, EYES, EARS, NOSE AND THROAT: +left nostril epistaxis. No change in vision. No ear pain or discharge. No sore throat. CARDIOVASCULAR: No chest pain or shortness of breath. RESPIRATORY: +cough, +congestion. No wheezing, or hemoptysis. GASTROINTESTINAL: No nausea, vomiting, diarrhea or constipation. GENITOURINARY: No dysuria, frequency, or change in urination. MUSCULOSKELETAL: No joint or muscle swelling or pain. No neck or back pain. SKIN: No rash NEUROLOGIC: No headache, vertigo, loss of consciousness, or change in strength/ sensation. ENDOCRINE: No increased thirst. No abnormal weight change. HEMATOLOGIC/LYMPHATIC: No anemia, easy bleeding, or history of blood clots. ALLERGIC/IMMUNOLOGIC: No hives or skin allergy. 07/09/18 04:36 <Tanika Zheng - Last Filed: 07/09/18 04:36> *Physical Exam - Vital Signs Last Vital Signs Temp Pulse Resp BP Pulse Ox 98.2 F 74 19 145/76 99 07/09/18 00:46 07/09/18 00:46 07/09/18 00:46 07/09/18 00:46 07/09/18 00:46 - Physical Exam Comments: GENERAL: Awake, alert, and fully oriented, in no acute distress HEAD: No signs of trauma EYES: PERRLA, EOMI, sclera anicteric, conjunctiva clear ENT: Left medial septal irritation, no active bleeding. Auricles normal inspection, hearing grossly normal, oropharynx clear without exudates. Moist mucosa NECK: Normal ROM, supple, no lymphadenopathy, JVD, or masses NEUROLOGICAL: Cranial nerves II through XII grossly intact. Normal speech, normal gait SKIN: Warm, Dry, normal turgor, no rashes or lesions noted. 07/09/18 04:37 <Tanika Zheng - Last Filed: 07/09/18 04:36> - Vital Signs Last Vital Signs Temp Pulse Resp BP Pulse Ox 98.2 F 74 19 145/76 99 07/09/18 00:46 07/09/18 00:46 07/09/18 00:46 07/09/18 00:46 07/09/18 00:46 <Keny Rice - Last Filed: 07/09/18 04:52> Moderate Sedation - Procedure Monitoring Vital Signs: Procedure Monitoring Vital Signs Temperature 98.2 F 07/09/18 00:46 Pulse Rate 74 07/09/18 00:46 Respiratory Rate 19 07/09/18 00:46 Blood Pressure 145/76 07/09/18 00:46 O2 Sat by Pulse Oximetry (%) 99 07/09/18 00:46 <Tanika Zheng - Last Filed: 07/09/18 04:36> - Procedure Monitoring Vital Signs: Procedure Monitoring Vital Signs Temperature 98.2 F 07/09/18 00:46 Pulse Rate 74 07/09/18 00:46 Respiratory Rate 19 07/09/18 00:46 Blood Pressure 145/76 07/09/18 00:46 O2 Sat by Pulse Oximetry (%) 99 07/09/18 00:46 <Keny Rice - Last Filed: 07/09/18 04:52> ED Treatment Course - LABORATORY CBC & Chemistry Diagram: 07/09/18 02:53 07/09/18 02:53 - ADDITIONAL ORDERS Additional order review: Laboratory Results 07/09/18 02:53 Sodium 142 Potassium 3.9 Chloride 107 Carbon Dioxide 28 Anion Gap 7 L BUN 12 Creatinine 0.6 Creat Clearance w eGFR > 60 Random Glucose 107 H Calcium 8.3 L Total Bilirubin 0.3 AST 21 ALT 40 Alkaline Phosphatase 154 H Total Protein 6.6 Albumin 3.4 07/09/18 02:53 RBC 4.34 MCV 84.3 MCHC 35.0 RDW 14.7 MPV 9.1 Neutrophils % 54.3 D Lymphocytes % 34.7 D Monocytes % 6.3 Eosinophils % 3.8 D Basophils % 0.9 D - Medications Given in the ED: ED Medications Discontinued Medications Generic Name Dose Route Start Last Admin Trade Name Freq PRN Reason Stop Dose Admin Sodium Chloride 1,000 mls @ 1,000 mls/hr 07/09/18 02:15 07/09/18 03:33 Normal Saline - IV 07/09/18 03:14 1,000 mls/hr ASDIR STA Administration Sodium Chloride 3 ml 07/09/18 02:15 07/09/18 03:33 Normal Saline For Inhalation - IH 07/09/18 02:16 3 ml ONCE ONE Administration <Tanika Zheng - Last Filed: 07/09/18 04:36> - LABORATORY CBC & Chemistry Diagram: 07/09/18 02:53 07/09/18 02:53 - ADDITIONAL ORDERS Additional order review: Laboratory Results 07/09/18 02:53 Sodium 142 Potassium 3.9 Chloride 107 Carbon Dioxide 28 Anion Gap 7 L BUN 12 Creatinine 0.6 Creat Clearance w eGFR > 60 Random Glucose 107 H Calcium 8.3 L Total Bilirubin 0.3 AST 21 ALT 40 Alkaline Phosphatase 154 H Total Protein 6.6 Albumin 3.4 07/09/18 02:53 RBC 4.34 MCV 84.3 MCHC 35.0 RDW 14.7 MPV 9.1 Neutrophils % 54.3 D Lymphocytes % 34.7 D Monocytes % 6.3 Eosinophils % 3.8 D Basophils % 0.9 D - RADIOLOGY Radiology Studies Ordered: Category Date Time Status CHEST PA & LAT [RAD] Stat Radiology 07/09/18 02:15 Taken - Medications Given in the ED: ED Medications Discontinued Medications Generic Name Dose Route Start Last Admin Trade Name Freq PRN Reason Stop Dose Admin Sodium Chloride 1,000 mls @ 1,000 mls/hr 07/09/18 02:15 07/09/18 03:33 Normal Saline - IV 07/09/18 03:14 1,000 mls/hr ASDIR STA Administration Sodium Chloride 3 ml 07/09/18 02:15 07/09/18 03:33 Normal Saline For Inhalation - IH 07/09/18 02:16 3 ml ONCE ONE Administration <Keny Rice - Last Filed: 07/09/18 04:52> Medical Decision Making - Medical Decision Making 07/09/18 03:47 A portion of this note was documented by scribe services under my direction. I have reviewed the details of the note, within reason, and agree with the documentation with the following case summary and management plan written by me. Patient treated in the ED. Nursing notes are reviewed and incorporated into the medical decision-making. Vital signs reviewed. Peripheral IV access obtained by the nurse, laboratory studies are drawn and sent, reviewed and interpreted by myself. Vital Signs Temp Pulse Resp BP Pulse Ox 98.2 F 74 19 145/76 99 07/09/18 00:46 07/09/18 00:46 07/09/18 00:46 07/09/18 00:46 07/09/18 00:46 58-year-old female with past medical history of hypertension, diabetes, hyperlipidemia, coronary disease, depression presents with 1 week of chest congestion, cough. Denies fevers or chills. But reports that the patient coughing frequently. Head noted in the last day that she's been having intermittent left nostril epistaxis. Because the symptoms have worsened, the patient came to the ER for further evaluation. I suspect the patient's epistaxis secondary to dry air and to the patient's URI symptoms. I suspect the patient may have bronchitis. We'll obtain chest x-ray to rule out pneumonia. Labs and reassess. Patient's currently not having bleeding but will observe. 07/09/18 04:48 CBC, BMP 07/09/18 02:53 07/09/18 02:53 CMP Sodium 142 mmol/L (136-145) 07/09/18 02:53 Potassium 3.9 mmol/L (3.5-5.1) 07/09/18 02:53 Chloride 107 mmol/L (98-107) 07/09/18 02:53 Carbon Dioxide 28 mmol/L (21-32) 07/09/18 02:53 Anion Gap 7 MMOL/L (8-16) L 07/09/18 02:53 BUN 12 mg/dL (7-18) 07/09/18 02:53 Creatinine 0.6 mg/dL (0.55-1.3) 07/09/18 02:53 Creat Clearance w eGFR > 60 (>60) 07/09/18 02:53 Random Glucose 107 mg/dL (74-106) H 07/09/18 02:53 Calcium 8.3 mg/dL (8.5-10.1) L 07/09/18 02:53 Total Bilirubin 0.3 mg/dL (0.2-1) 07/09/18 02:53 AST 21 U/L (15-37) 07/09/18 02:53 ALT 40 U/L (13-61) 07/09/18 02:53 Alkaline Phosphatase 154 U/L (45-117) H 07/09/18 02:53 Total Protein 6.6 g/dl (6.4-8.2) 07/09/18 02:53 Albumin 3.4 g/dl (3.4-5.0) 07/09/18 02:53 Chest xray reviewed by me, pending official radiology read. No infiltrates. Will treat as bronchitis. Discharge with azithromycin. I encouraged the patient to buy a humidifier. No further bleeding noted. I instructed the patient that if she has a mild nosebleed to use a spray of afrin and then squeeze her nose. If it's severe, the patient should come back to the ER. <Keny Rice - Last Filed: 07/09/18 04:52> *DC/Admit/Observation/Transfer - Attestations Scribe Attestion: 07/09/18 04:38 Documentation prepared by Tanika Zheng, acting as biomedical electronics technician for Keny Rice MD. <Tanika Zheng - Last Filed: 07/09/18 04:36> - Discharge Dispostion Decision to Admit order: No <Keny Rice - Last Filed: 07/09/18 04:52> Diagnosis at time of Disposition: Bronchitis, Epistaxis - Discharge Dispostion Disposition: HOME Condition at time of disposition: Good - Prescriptions Prescriptions: Azithromycin 250 mg PO DAILY #4 tablet Ondansetron HCl [Zofran] 4 mg PO Q8H PRN #12 tablet PRN Reason: Nausea - Referrals Referrals: Cheryl Cohen [Primary Care Provider] - - Patient Instructions Printed Discharge Instructions: DI for Nosebleed, DI for Acute Bronchitis Additional Instructions: Please take the azithromycin as prescribed. Please buy a humidifier and use it. This will help with your symptoms. If you notice a mild nosebleed, please use a spray of afrin and pinch your nose. If the bleeding is a lot, please return to the ER. If you have nausea, take a tablet of zofran every 8 hours as needed. Follow up with your doctor. Print Language: MALAY - Post Discharge Activity
[2018-07-09] MEDS ORDERED: ONDANSETRON 4 MG/2 ML VIAL IVPB ONE (04:35)
[2018-07-09] MEDS ORDERED: AZITHROMYCIN 250 MG TABLET PO ONE (04:35)
[2018-07-09] MEDS ORDERED: AZITHROMYCIN 250 MG TABLET ONE (04:50)
[2018-07-09] MEDS ORDERED: ONDANSETRON 4 MG/2 ML VIAL ONE (04:51)
== END 2018-07-09 05:30 | disposition home or self-care (01) ==
LOC: JER 00:46
PROC: 3E0337Z Introduction of Electrolytic and Water Balance Substance into Peripheral Vein, Percutaneous Approach (ICD-10-PCS; principal; 2018-07-09)
PROC: 3E033GC Introduction of Other Therapeutic Substance into Peripheral Vein, Percutaneous Approach (ICD-10-PCS; 2018-07-09)
DX: J40 Bronchitis, not specified as acute or chronic (principal); I25.10 Atherosclerotic heart disease of native coronary artery without angina pectoris; I10 Essential (primary) hypertension; E78.00 Pure hypercholesterolemia, unspecified; E11.9 Type 2 diabetes mellitus without complications; Z79.84 Long term (current) use of oral hypoglycemic drugs; F32.5 Major depressive disorder, single episode, in full remission; R04.0 Epistaxis
CPT/HCPCS: 36415; 71046-TC-FY; 80053; 85025; 99281-25; J7030

== ENCOUNTER 2019-06-25 07:31 | Emergency (ER) | payer OTHER ==
[2019-06-25 07:49] VITALS: BMI 30.7
[2019-06-25] MEDS ORDERED: ONDANSETRON 4 MG/2 ML VIAL IVPUSH ONE (08:03)
[2019-06-25] MEDS ORDERED: SODIUM CHLORIDE 1,000 ML IV STA (08:03)
[2019-06-25] MEDS ORDERED: PANTOPRAZOLE SODIUM 40 MG VIAL IVPUSH ONE (08:04)
[2019-06-25] MEDS ORDERED: ACETAMINOPHEN 1000 MG/100 ML VIAL (NON FORMULARY) IVPB ONE (08:04)
[2019-06-25] MEDS ORDERED: ONDANSETRON 4 MG/2 ML VIAL ONE (08:13)
[2019-06-25] MEDS ORDERED: PANTOPRAZOLE SODIUM 40 MG VIAL ONE (08:13)
[2019-06-25] MEDS ORDERED: ACETAMINOPHEN INJECTION 100 ML IVPB ONE (08:13)
[2019-06-25 08:55] LABS: BASO % 0.6 % (0-2.0); HEMATOCRIT 41.2 % (32.4-45.2); HEMOGLOBIN 13.8 GM/dL (10.7-15.3); LYMPH % 30.5 % (8-40); MCH 29.4 pg (25.7-33.7); MCHC 33.5 g/dl (32.0-36.0); MEAN CELL VOLUME 87.6 fl (80-96); MEAN PLT VOLUME 9.3 fl (7.5-11.1); MONO % 7.7 % (3.8-10.2); NEUT % 59.2 % (42.8-82.8); PLATELET COUNT 203 K/MM3 (134-434); RBC 4.71 M/mm3 (3.60-5.2); RDW 14.4 % (11.6-15.6); WHITE BLOOD COUNT 4.6 K/mm3 (4.0-10.0)
--- NOTE | 2019-06-25 09:14 | PDOC ---
History of Present Illness - General Chief Complaint: Vomiting/Diarrhea Stated Complaint: VOMITING,DIARRHEA Time Seen by Provider: 06/25/19 07:54 History Source: Patient Exam Limitations: No Limitations - History of Present Illness Travel History: No Initial Comments: 06/25/19 09:14 59-year-old female presents to ED with nausea vomiting and diarrhea since yesterday now associated with fatigue, mild dizziness, and upper abdominal cramping. patient denies any recent travel recent illness or recent change in medications. Patient is a diabetic and states her glucose yesterday morning was 142. Patient has no urinary complaints, fever, chills, rash, recent constipation, chest pain, shortness of breath or cough. Timing/Duration: reports: intermittent Quality: reports: mild, cramping Abdominal Pain Onset Location: reports: RUQ, LUQ, epigastric (Burning sensation) Pain Radiation: reports: no radiation Aggravating Factors: improves with: None Alleviating Factors: improves with: None Past History - Travel Traveled outside of the country in the last 30 days: No Close contact w/someone who was outside of country & ill: No - Past Medical History Allergies/Adverse Reactions: Allergies Allergy/AdvReac Type Severity Reaction Status Date / Time No Known Drug Allergies Allergy Verified 06/25/19 07:44 Home Medications: Ambulatory Orders Aspirin Coated [Ecotrin -] 81 mg PO DAILY 08/14/13 Lisinopril [Zestril] 10 mg PO DAILY 12/01/17 metFORMIN HCL [Metformin HCl] 750 mg PO DAILY 12/01/17 Gabapentin [Neurontin] 300 mg PO Q8H PRN #20 capsule 06/02/18 Atorvastatin Ca [Lipitor] 20 mg PO HS 06/25/19 Diclofenac/Hyaluronate/Niacin [Diclofen 3%-Hyaluron 2%-Niac4%] 30 gm TP ASDIR Ergocalciferol [Vitamin D2] 50,000 unit PO Q7D@1000 06/25/19 Famotidine [Pepcid -] 20 mg PO DAILY 06/25/19 Linaclotide [Linzess] 72 mcg PO DAILY 06/25/19 Sumatriptan Succinate [Imitrex -] 50 mg PO ASDIR PRN 06/25/19 Topiramate [Topiramate ER] 25 mg PO DAILY 06/25/19 Anemia: No Asthma: No Cancer: No Cardiac Disorders: No CVA: No COPD: No CHF: No DVT: No Dementia: No Diabetes: Yes (NIDDM) GI Disorders: No Disorders: Yes (INCONTINENCE) HTN: Yes Hypercholesterolemia: Yes Liver Disease: No Psychiatric Problems: Yes (Depression) Seizures: No Thyroid Disease: No - Surgical History Appendectomy: Yes - Immunization History Immunization Up to Date: Yes - Psycho Social/Smoking Cessation Hx Smoking History: Never smoked Have you smoked in the past 12 months: No Hx Alcohol Use: No Drug/Substance Use Hx: No Substance Use Type: None Hx Substance Use Treatment: No Patient Lives Alone: No Lives with/in: spouse/SO Review of Systems - Review of Systems Able to Perform ROS?: Yes Constitutional: Yes: Loss of Appetite, Weakness HEENTM: No: Symptoms Reported Respiratory: No: Symptoms reported ABD/GI: Yes: Diarrhea, Nausea, Poor Appetite, Poor Fluid Intake, Vomiting, Abdominal cramping : No: Symptoms Reported Musculoskeletal: No: Symptoms Reported Integumentary: No: Symptoms Reported Neurological: Yes: Weakness Endocrine: No: Symptoms Reported Hematologic/Lymphatic: No: Symptoms Reported *Physical Exam - Vital Signs Last Vital Signs Temp Pulse Resp BP Pulse Ox 98.2 F 89 18 114/73 97 06/25/19 07:48 06/25/19 07:48 06/25/19 07:48 06/25/19 07:48 06/25/19 07:48 - Physical Exam General Appearance: Yes: Nourished, Appropriately Dressed. No: Apparent Distress HEENT: positive: EOMI, NOHEMY. negative: Pale Conjunctivae Neck: positive: Normal Thyroid, Supple Respiratory/Chest: positive: Lungs Clear, Normal Breath Sounds. negative: Respiratory Distress, Accessory Muscle Use Cardiovascular: positive: Regular Rhythm, Regular Rate. negative: Murmur Gastrointestinal/Abdominal: positive: Soft, Tenderness (epigastric) Musculoskeletal: negative: CVA Tenderness Extremity: positive: Normal Inspection Integumentary: positive: Normal Color, Warm, Moist Neurologic: positive: Motor Strength 5/5 (ambulatory) ED Treatment Course - LABORATORY CBC & Chemistry Diagram: 06/25/19 08:20 06/25/19 08:20 - ADDITIONAL ORDERS Additional order review: 06/25/19 08:20 RBC 4.71 MCV 87.6 MCHC 33.5 RDW 14.4 MPV 9.3 Neutrophils % 59.2 Lymphocytes % 30.5 Monocytes % 7.7 Eosinophils % 2.0 Basophils % 0.6 - Medications Given in the ED: ED Medications Discontinued Medications Generic Name Dose Route Start Last Admin Trade Name Ally PRN Reason Stop Dose Admin Acetaminophen 1,000 mg 06/25/19 08:04 06/25/19 08:10 Ofirmev Injection - IVPB 06/25/19 08:05 1,000 mg ONCE ONE Administration Ondansetron HCl 4 mg 06/25/19 08:03 06/25/19 08:10 Zofran Injection IVPUSH 06/25/19 08:04 4 mg ONCE ONE Administration Pantoprazole Sodium 40 mg 06/25/19 08:04 06/25/19 08:10 Protonix Iv IVPUSH 06/25/19 08:05 40 mg ONCE ONE Administration Medical Decision Making - Medical Decision Making 06/25/19 09:20 Chief complaint: Nausea vomiting and diarrhea and abdominal cramping since yesterday. BGM 142 yesterday Exam: Patient with epigastric tenderness vital signs stable. No active vomiting here in the ER. Plan: Labs, urine, medication and will reevaluate shortly 06/25/19 10:12 Laboratory Tests 06/25/19 06/25/19 06/25/19 08:20 08:20 08:20 WBC 4.6 Hgb 13.8 Hct 41.2 Absolute Neuts (auto) 2.7 Sodium 141 Potassium 4.1 Chloride 105 Carbon Dioxide 32 Anion Gap 4 L BUN 10.5 Creatinine 0.6 Est GFR (CKD-EPI)NonAf 100.47 Random Glucose 124 H Calcium 8.8 Magnesium 2.1 AST 33 Alkaline Phosphatase 171 H Total Protein 6.6 Albumin 3.6 Lipase 64 L Urine Ketones Trace H Urine Nitrite Negative Ur Leukocyte Esterase Trace Urine WBC (Auto) 5 Patient has no urinary complaints. Urine culture sent. Patient states feeling much better and wanting to go home. Will discharge home with Zofran and recommendations to eat bland food , and rest, drinking plenty of fluids. Discharge - Discharge Information Problems reviewed: Yes Clinical Impression/Diagnosis: Nausea vomiting and diarrhea Condition: Improved Disposition: HOME - Follow up/Referral Referrals: Cheryl Cohen [Primary Care Provider] - - Patient Discharge Instructions Patient Printed Discharge Instructions: Nausea and Vomiting-Adult, DI for Diarrhea and Traveler's Diarrhea -- Adult Additional Instructions: Please eat bland food for the next 48 hours then may advance as tolerated. Take Zofran as needed for nausea. Rest. Follow-up with your primary care doctor. Check your sugar routinely - Post Discharge Activity
[2019-06-25 09:17] VITALS: BP 130/76; PULSE 73; TEMP 98.1
[2019-06-25 09:20] LABS: ALBUMIN 3.6 g/dl (3.4-5.0); BILIRUBIN,TOTAL 0.4 mg/dL (0.2-1); BLOOD UREA NITROGEN 10.5 mg/dL (7-18); CALCIUM 8.8 mg/dL (8.5-10.1); CREATININE 0.6 mg/dL (0.55-1.3); MAGNESIUM 2.1 mg/dL (1.8-2.4); POTASSIUM 4.1 mmol/L (3.5-5.1); TOT PROT 6.6 g/dl (6.4-8.2)
[2019-06-25 09:59] LABS: EPI CELLS 9.4 /HPF (0-5/HPF); HYALINE CASTS 9 /lpf (0-8); PH,URINE 6.5 (5.0-8.0); URINE APPEARANCE CLOUDY; URINE BACTERIA 203.6 /hpf (NEGATIVE); URINE BILIRUBIN NEGATIVE (NEGATIVE); URINE COLOR DK YELLOW; URINE GLUCOSE (UA) NEGATIVE (NEGATIVE); URINE KETONE TRACE (NEGATIVE); URINE LEUK ESTERASE TRACE (NEGATIVE); URINE NITRITE NEGATIVE (NEGATIVE); URINE PROTEIN NEGATIVE (NEGATIVE); URINE RBC 7 /hpf (0-4); URINE WBC 5 /hpf (0-5)
== END 2019-06-25 11:00 | disposition home or self-care (01) ==
LOC: JER 07:31
PROC: 3E033NZ Introduction of Analgesics, Hypnotics, Sedatives into Peripheral Vein, Percutaneous Approach (ICD-10-PCS; principal; 2019-06-25)
PROC: 3E033GC Introduction of Other Therapeutic Substance into Peripheral Vein, Percutaneous Approach (ICD-10-PCS; 2019-06-25)
DX: R11.2 Nausea with vomiting, unspecified (principal); R19.7 Diarrhea, unspecified
CPT/HCPCS: 36415; 80053; 81003; 83690; 83735; 85025; 87086; 99283-25; J0131; J7030